=== PATIENT | female | born 1980 | race Two or more races ===

== ENCOUNTER 2024-09-27 06:00 | Day surgery (SDC) | payer OTHER ==
[2024-09-27] MEDS ORDERED: DIPHENHYDRAMINE HCL 50 MG/ML VIAL 1ML IV ONE (11:15)
[2024-09-27] MEDS ORDERED: MIDAZOLAM HCL 2 MG/2 ML VIAL IV ONE (11:15)
[2024-09-27] MEDS ORDERED: fentaNYL CITRATE 50 MCG/ML AMPUL IV ONE (11:15)
== END 2024-09-27 12:35 | disposition home or self-care (01) ==
LOC: AMB-ENDOS 06:00
PROVIDERS: ATTEND Surgery
DX: K62.5 Hemorrhage of anus and rectum (principal); K52.89 Other specified noninfective gastroenteritis and colitis; R19.4 Change in bowel habit; K64.8 Other hemorrhoids

== ENCOUNTER 2024-10-24 05:50 | Day surgery (SDC) | payer OTHER ==
[2024-10-18 12:04] VITALS: BP 103/71
[~2024-10-24] VITALS: Ht 160 cm; Wt 47.6 kg
[~2024-10-24 05:50] MED LIST: LEVSIN0.125 MG; PEPCID AC10 MG; PROTONIX40 MG PO; TOPROL XL200 MG PO; TRAMADOL HCL50 MG PO
[2024-10-24] MEDS ORDERED: DIBUCAINE 30 GM TUBE RECTAL SCH (09:45)
[2024-10-24] MEDS ORDERED: POVIDONE-IODINE 118 ML BOTT TOP SCH (09:45)
[2024-10-24] MEDS ORDERED: METRONIDAZOLE/SODIUM CHLORIDE 500 MG/100 ML PIGGYBACK IV SCH (09:45)
[2024-10-24] MEDS ORDERED: CEFTRIAXONE SODIUM 2,000 MG VIAL IV SCH ×2 (09:45)
[2024-10-24] MEDS ORDERED: HEMOSTATIC MATRIX 1 KIT KIT TOP SCH (09:45)
[2024-10-24] MEDS ORDERED: BUPIVACAINE HCL/PF 0.25% 30ML VIAL InF SCH (09:45)
[2024-10-24] MEDS ORDERED: BUPIVACAINE LIPOSOME/PF 266 MG/20 ML VIAL IJ SCH (09:45)
[2024-10-24] MEDS ORDERED: OXYCODONE HCL5 MG PO (11:11)
[2024-10-24] MEDS ORDERED: TAMSULOSIN HCL 0.4 MG CAP PO ONE (11:15)
== END 2024-10-24 13:23 | disposition home or self-care (01) ==
LOC: CIR.AMB 05:50
PROVIDERS: ATTEND Surgery
DX: K64.2 Third degree hemorrhoids (principal); K64.4 Residual hemorrhoidal skin tags; D12.9 Benign neoplasm of anus and anal canal; K62.5 Hemorrhage of anus and rectum; K52.89 Other specified noninfective gastroenteritis and colitis; K52.9 Noninfective gastroenteritis and colitis, unspecified; I49.9 Cardiac arrhythmia, unspecified; Z88.6 Allergy status to analgesic agent; Z91.011 Allergy to milk products